=== PATIENT | male | born 1995 | race Caucasian/White ===

== ENCOUNTER 2019-12-17 08:18 | Emergency (ER) | payer OTHER, SELFPAY ==
[2019-12-17 08:21] VITALS: BP 159/96; PULSE 107; RESP 16; TEMP 36.1; O2SAT 99; BMI 31.7
--- NOTE | 2019-12-17 08:36 | ED.DCSUM_ITS ---
- ER Visit Summary Date of Service: 12/17/19 Chief Complaint: Abdominal pain History of Present Illness: The patient is a 24 M who presents with abdominal pain that has been constant for the past 2 weeks. Patient states it is gradually gotten worse. Patient states pain is over the epigastric and upper abdomen. Patient describes it as aching. Patient states he saw his primary care physician for this who prescribed him Pepcid. Patient states this helps for a short time. Patient states his pain is worse with eating and with laying flat. Patient admits to nausea but denies any vomiting. Patient admits to diarrhea but denies any melena or hematochezia. Patient denies any dysuria or hematuria. Physical Examination: Vital signs are stable except for mild tachycardia of 107. Patient is afebrile. Patient is in no acute distress. Oral mucosa is pink and moist. Neck is supple. Trachea is midline. There is no JVD. Heart was regular and slightly tachycardic. Lungs are clear and equal bilaterally. Abdomen is soft. Bowel sounds are normal. There is epigastric and bilateral upper quadrant tenderness, worse on the right. There is no rebound or guarding noted. There is negative Harley sign. Cranial nerves II through XII are intact. There are no focal motor or sensory deficits noted. Test Results: CBC was within normal limits. Comprehensive metabolic profile showed a slightly elevated bilirubin of 2.3. Right upper quadrant ultrasound was obtained. There is fatty infiltration of the liver. There is a 4 mm nonobstructive stone in the right kidney. There is no cholelithiasis or evidence of cholecystitis. These were interpreted by the radiologist and myself. Emergency Department Course and Treatment: Patient was given a GI cocktail here. Patient was feeling somewhat better on reevaluation. Patient was instructed to start taking Prilosec which he has at home. Patient was instructed to follow-up with his primary care physician in 5 to 7 days. Patient was advised he may need to see a escrow agent to have an endoscopy to see if this is possible gastric or duodenal ulcer. Patient understands and is agreeable with the plan. All questions were answered. Disposition: Discharge home Impression: 1. Upper abdominal pain This note was generated with [employer]te[employer] (Emerald [employer])ation software. It may contain incorrect words, spelling, and punctuation that were not noted in review of the chart prior to signing ED Disposition - Plan for ED Patient: Disposition: Home or Assisted Living Diagnosis: Upper abdominal pain of unknown etiology Instructions: ABDOMINAL PAIN, Unkown Cause, (Male) Referrals: Preston Vazquez, [facility] [Primary Care Provider] - 5-7 Days
[2019-12-17] MEDS: Ondansetron 4 MG/2 ML Vial IV (08:55)
[2019-12-17] MEDS: 0.9% Normal Saline 1,000 ML 1000 ML IV (08:55)
[2019-12-17] MEDS: Mag Hydrox/Al Hydrox/Simeth 30 ML UDC PO (08:55)
[2019-12-17 09:00] LABS: Absolute Lymphocyte Count 1.74 X10^3/uL (0.83-4.51); Absolute Neutrophil Count 3.8 X10^3/uL (2.0-7.7); Basophil# 0.05 X10^3/uL; Basophil% 0.8 % (0-1); Eosinophil# 0.06 X10^3/uL; Hematocrit 45.9 % (40-54); Hemoglobin 16.3 g/dL (13.0-16.5); Lymphocyte # 1.74 X10^3/ul (4.0); Lymphocyte % 28.7 % (19-41); Mean Corp Hgb Conc 35.5 g/dL (32-36); Mean Corpuscular Hgb 32.8 pg (27.0-32.0); Mean Corpuscular Volume 92.4 fL (80-94); Mean Platelet Vol. 9.8 fl (6.2-12.0); Monocyte# 0.43 X10^3/uL; Monocyte% 7.1 % (0-10); NRBC Flagged by Analyzer 0 % (0-5); Neutrophil # 3.77 X10^3/uL (2.7-7.7); Neutrophil % 62.2 % (47-70); Platelet Count 299 K/mm3 (150-450); RBC Distribution Width CV 11.3 % (11.6-14.6); RBC Distribution Width SD 38.6 fl (35.1-43.9); Red Blood Count 4.97 M/mm3 (4.6-6.2); White Blood Count 6.1 K/mm3 (4.4-11.0)
[2019-12-17 09:17] LABS: ALB/GLOB Ratio 1.2 RATIO (0.9-2.4); AST(SGOT) 36 U/L (15-37); Alanine Aminotransfer ALT/SGPT 91 U/L (16-61); Albumin, Serum 4.2 g/dL (3.2-5.0); Alkaline Phosphatase 95 U/L (45-117); Anion Gap 5 (5-15); BUN 14 mg/dL (7-18); Calcium,Total 9.8 mg/dL (8.5-10.1); Chloride 105 mmol/L (98-107); Creatinine, Serum 1.27 mg/dL (0.70-1.30); EST Glomerular Filtration Rate 73 mL/min (>60); Est Glom Filt Rate - Afr Amer 88 mL/min (>60); Estimated Creatinine Clearance 88.92 ml/min; Globulin 3.5 g/dL (2.2-4.2); Glucose 96 mg/dL (74-106); Lipase 131 U/L (73-393); Potassium 3.8 mmol/L (3.5-5.1); Protein, Total 7.7 g/dL (6.4-8.2); Sodium Level 140 mmol/L (136-145)
--- NOTE | 2019-12-17 09:43 | US_ITS ---
STUDY: ABDOMINAL ULTRASOUND - RIGHT UPPER QUADRANT REASON FOR VISIT: Male, 24 years old ruq pain x 3 weeks TECHNIQUE: Ultrasound evaluation of the right upper quadrant was performed with real-time and static jenkins-scale imaging. TECHNICAL QUALITY: Adequate. COMPARISON: None. FINDINGS: Liver: The liver measures 14.2 cm. There is increased echogenicity consistent with fatty infiltration. The bile ducts are within normal limits. There is hepatic color flow. The direction of portal flow is hepatopetal. There is no demonstrated mass lesion. Gallbladder: Normal distended gallbladder. The gallbladder wall measures 2.3 mm. There is a negative sonographic Harley''s sign. There is no pericholecystic fluid. There are no gallstones. Common Bile Duct (C.B.D.): The common bile duct measures 2.6 mm. Pancreas: Normal size of the head, body and tail of the pancreas. There is increased echogenicity of the pancreas. There is no demonstrated pancreatic mass or cyst. Right Kidney: Normal size of the right kidney. The right kidney measures 11.5 cm x 5.8 cm x 5.1 cm. Normal renal cortex. The right cortex measures 2.3 cm. There is no demonstrated renal mass or cyst. There is no right hydronephrosis. There is a 4 mm nonobstructive calculus in the right kidney. US/Abdomen Limited IMPRESSION: Fatty infiltration of the liver. 4 mm nonobstructive calculus in the right kidney. Electronically Signed: Donavan Gonsalves, at 10:32 EST , Service support ,
[2019-12-17 11:16] VITALS: BP 134/85; PULSE 74; RESP 16; O2SAT 96
--- NOTE | 2019-12-17 11:17 | ED.RN ---
IV DC'ED, CATHETER INTACT, SMALL GAUZE DRESSING PLACED. DISCHARGE INSTRUCTIONS GIVEN TO AND REVIEWED WITH PATIENT, PATIENT DENIES QUESTIONS OR CONCERNS AND VOICES UNDERSTANDING OF DISCHARGE INSTRUCTIONS. PT AMBULATES OUT OF ROOM WITHOUT DIFFICULTY.
== END 2019-12-17 11:18 | disposition home or self-care (01) ==
PROVIDERS: Emergency Provider Emergency Medicine; PCP Nurse Practitioner Family
DX: R10.11 Right upper quadrant pain (principal); M54.9 Dorsalgia, unspecified; R11.2 Nausea with vomiting, unspecified; N20.0 Calculus of kidney
CPT/HCPCS: 76705; 80053; 83690; 85025; 96361; 96374; 99284; J7030; A4216; J2405

== ENCOUNTER 2025-09-22 18:42 | Emergency (ER) | payer BC, SELFPAY ==
[2025-09-22] VITALS (7 sets, daily range): BP systolic 121–187; BP diastolic 75–102; PULSE 78–117; RESP 16–22; TEMP 36.1–36.8; O2SAT 95–100; BMI 37.9
--- OUTSIDE RECORDS SUMMARY | 2025-09-22 19:16 | XMS RPT_ITS | CCD ---
Author Organization [facility] SERVICE DEPARTMENT MANAGER [facility] Results Test Name Value Interpretation Reference Range Facil ity NM HEPATOBILIARY DUCT SYSTEM IMAGINGon 01-13-2020 NM HEPATOBILIARY DUCT SYSTEM IMAGING ORIGINAL NM HEPATOBILIARY DUCT SYSTEM IMAGING CLINICAL STATEMENT: RUQ pain, cholecystitis suspected. TECHNIQUE: Radiopharmaceutical : Tc-99m CHOLETEC Dose: 6.3 mCi IV Dynamic anterior imaging of the liver Sincalide CCK Dose: 1.9 mcg IV infusion 30 minute additional dynamic study and GBEF calculation COMPARISON: None. FINDINGS: There is prompt normal hepatic uptake. No apparent focal cold defect is seen in the liver. The biliary tree, common bile duct, gallbladder, and small bowel are all visualized within the normal time range. The gallbladder contracts adequately to CCK stimulation. The calculated gallbladder ejection fraction is 59%. (normal = or > than 35%). IMPRESSION: Normal study. The cystic duct is patent, which essentially excludes the diagnosis of acute cholecystitis. There is normal gallbladder contractility. Interpreted By: Renee Oro Preliminary Report By: Renee Oro Electronically Signed By: Renee Oro Dictated Date: 01/13/2020 3:07:32 PM Prelim Date: 01/13/2020 3:07:32 PM Sign Date: 01/13/2020 3:12:38 PM Ordering Provider:Preston Vazquez [facility] ([place]) Summary Purpose Family History No Family History Records Found Advance Directives No Advanced Directives Records Found Additional Source Comments (unrecognized sect ion and content) No Status Records Found INFORMATION SOURCE (unrecogn ized section and content) DATE CREATED AUTHOR 01/13/2020 [facility] ([place]) FOR RECORDS PERTAINING TO PATIENTS WHO ARE OR HAVE BEEN ENROLLED IN A CHEMICAL DEPENDENCY/SUBSTANCEABUSE PROGRAM, SOME INFORMATION MAY BE OMITTED. This clinical summary was aggregated from multiple sources. Caution should be exercised in using it in the provision of clinical care. This summary normalizes information from multiple sources, and as a consequence, information in this document may materially change the coding, format and clinical context of patient data. In addition, data may be omitted in some cases. CLINICAL DECISIONS SHOULD BE BASED ON THE PRIMARY CLINICAL RECORDS. [facility]. provides no warranty or guarantee of the accuracy or completeness of information in this document.
--- NOTE | 2025-09-22 19:20 | EKG12_ITS ---
Test Reason : CP Blood Pressure : */* mmHG Vent. Rate : 103 BPM Atrial Rate : 103 BPM P-R Int : 150 ms QRS Dur : 80 ms QT Int : 334 ms P-R-T Axes : 51 84 35 degrees QTcB Int : 437 ms Sinus tachycardia Otherwise normal ECG Confirmed by TAHIRA ROSS ([id number]), publications editor OSNYA ROBB ([id number]) on 09/26/2025 6:37:44 AM Referred By: Confirmed By: TAHIRA ROSS
--- NOTE | 2025-09-22 19:21 | RAD_ITS ---
PROCEDURE: CHEST PA AND LATERAL 09/22/2025 REASON FOR EXAM: CHEST PAIN TECHNIQUE: Procedure Code: RADCXR Modality: DX Procedure: CHEST PA AND LATERAL COMPARISON: None. FINDINGS: Lungs/Pleura: Clear. Heart/Mediastinum: Within normal limits. Bones/Soft tissues: Unremarkable. RAD/Chest PA and Lateral IMPRESSION: No acute cardiopulmonary disease. Reading Location: [id number]
--- NOTE | 2025-09-22 19:34 | EDS_ITS ---
HPI History of Present Illness Chief Complaint: Chest Pain Narrative Narrative: Chief complaint and HPI: 30-year-old male with no significant past medical history who presents for evaluation of chest pain. Patient states he has a history of chest pain approximately 1 year ago when she was diagnosed with heartburn. States this feels similar. Patient states for the past several days he has been having some midsternal chest/epigastric abdominal pain. Intermittent. Describes it as burning. States that he eats a lot of spicy and fatty foods. States that coffee makes it worse. He endorses chewing tobacco but denies cigarettes. He denies any fever, chills, shortness of breath, n ausea, vomiting. Feels that his anxiety is having a component in his symptoms. Review of systems: See HPI Medications: As listed on the chart Allergies: As listed on the chart PFSH: Per chart Vital signs: As listed on the chart. Reviewed. Physical exam: Gen: A&O x3, NAD but anxious Head: Normocephalic, atraumatic Eyes: No sclera icterus, conjunctiva clear ENT: Moist mucous membranes Neck: Trachea midline CV: RRR, no murmurs Resp: Lungs CTA BL, no w/r/c GI: Abd soft, non-distended, non-tender, no r/r/g Musc: Moves all extremities, no deformity Skin: Warm, dry Psych: Cooperative PFSH PFSH Medical History no medical history Home Medications ?Medication ?Instructions ?Recorded ?Last Taken ?Type omeprazole 40 mg capsule,delayed 40 mg PO QHS 12/17/19 Unknown History release Allergy/AdvReac Type Severity Reaction Status Date / Time No Known Allergies Allergy Verified 09/22/25 18:44 Social History Smoking Status: Never smoker EXAM Physical Exam Const Vital Signs: 09/22/25 18:42 09/22/25 19:16 09/22/25 19:19 Temperature 97 F L Temperature Source Temporal Pulse Rate 117 H 102 H Respiratory Rate 22 H 20 H Respiratory Effort Normal Non-Labored Blood Pressure 187/102 H 121/75 H Blood Pressure Mean 130 90 Pulse Ox 100 95 Oxygen Delivery Method Room Air 09/22/25 19:30 09/22/25 20:15 09/22/25 21:00 Temperature Temperature Source Pulse Rate 106 H 103 H 97 Respiratory Rate 19 H 20 H 19 H Respiratory Effort Blood Pressure 155/75 H 140/81 H Blood Pressure Mean 93 98 Pulse Ox 96 95 96 Oxygen Delivery Method 09/22/25 22:00 Temperature Temperature Source Pulse Rate 89 Respiratory Rate 19 H Respiratory Effort Blood Pressure 139/77 H Blood Pressure Mean 97 Pulse Ox 95 Oxygen Delivery Method MDM MDM MDM Narrative Medical decision making narrative: 30-year-old male with no significant past medical history who presents for evaluation of chest pain. Patient states he has a history of chest pain approximately 1 year ago when she was diagnosed with heartburn. States this feels similar. Patient states for the past several days he has been having some midsternal chest/epigastric abdominal pain. Intermittent. Describes it as burning. States that he eats a lot of spicy and fatty foods. States that coffee makes it worse. Differential diagnosis includes but is not limited to GERD, gastritis, arrhythmia, ACS, PE. Pepcid and GI cocktail ordered. Laboratory workup ordered. CBC without leukocytosis or anemia. Platelets unremarkable. D-dimer unremarkable. BMP unremarkable. Patient has mild transaminitis with an AST of 96 and ALT of 150. No hyperbilirubinemia. No elevated alkaline phosphatase. Patient's abdomen is benign. No clear etiology for his transaminitis. Troponin unremarkable x 2. Lipase unremarkable. On reevaluation, patient states that the Pepcid and GI cocktail helped his symptoms. I suspect his symptoms are secondary to GERD/acid reflux. Will place on Protonix and have him follow-up outpatient with primary care physician and GI. Patient was updated on his transaminitis. States he has a history of this in the past in which his doctor watches due to fatty liver. Patient stable to discharge home. EKG: Interpreted by me/EM physician: EKG shows sinus tachycardia with a heart rate of 103. No acute ischemic changes. No QTc prolongation. Diagnostic: Interpreted by me/EM physician: Chest x-ray not pneumonia, effusion, cardiomegaly, pneumothorax Impression: 1. GERD 2. Transaminitis Lab Data Labs: Laboratory Results - last 24 hr 09/22/25 09/22/25 19:30 21:40 WBC 11.0 RBC 4.72 Hgb 16.0 Hct 44.6 MCV 94.5 H MCH 33.9 H MCHC 35.9 RDW Std Deviation 39.4 RDW Coeff of Constance 11.4 L Plt Count 321 MPV 9.9 Immature Gran % (Auto) 0.300 Neut % (Auto) 76.3 H Lymph % (Auto) 15.6 L Heard % (Auto) 6.6 Eos % (Auto) 0.4 Baso % (Auto) 0.8 Absolute Neuts (auto) 8.4 H Absolute Lymphs (auto) 1.71 Nucleated RBC % 0 D-Dimer Quant (PE/DVT) 0.27 Sodium 139 Potassium 3.9 Chloride 98 Carbon Dioxide 28.7 Anion Gap 12 BUN 16 Creatinine 1.07 Estim Creat Clear Calc 122.13 Est GFR (MDRD) Non-Af 95 BUN/Creatinine Ratio 15.0 Glucose 97 Calcium 9.6 Total Bilirubin 1.03 AST 96 H ALT 150 H Alkaline Phosphatase 68 Troponin T High Sens < 6 Troponin T Hi Sens 2 Hr < 6 Total Protein 7.8 Albumin 4.4 Globulin 3.4 Albumin/Globulin Ratio 1.3 Lipase 46 Radiography Diagnostic Testing: Clinical Impression(s) from Imaging Studies Chest X-Ray 09/22/25 19:21 IMPRESSION: No acute cardiopulmonary disease. Reading Location: [id number] Discharge Plan Triage Chief Complaint: Chest Pain ED Provider: Redd Garcia Dx/Rx/DC Orders Prescriptions: No Action omeprazole 40 MG capsule,delayed release(DR/EC) 40 mg PO QHS Primary Care Provider: Preston Vazquez NP Referrals: Preston Vazquez [employer], [employer] [Primary Care Provider, Family Practice] Print Language: Citizen [place]
[2025-09-22] MEDS: Lidocaine 2% Viscous15 ML UDC 15 ML PO (19:38)
[2025-09-22] MEDS: Famotidine 200 MG/20 ML MDV 20 MG in 0.9% Normal Saline (Pres. free 8 ML 300 MG IV (19:38)
[2025-09-22 19:54] LABS: Hematocrit 44.6 % (40-54); Hemoglobin 16.0 g/dL (13.0-16.5); Immature Granulocytes Count 0.030 X10^3/uL (0.0-0.0); Mean Corp Hgb Conc 35.9 g/dL (32-36); Mean Corpuscular Volume 94.5 fL (80-94); Mean Platelet Vol. 9.9 fl (6.2-12.0); NRBC Flagged by Analyzer 0 % (0-5); Platelet Count 321 K/mm3 (150-450); RBC Distribution Width CV 11.4 % (11.6-14.6); RBC Distribution Width SD 39.4 fl (35.1-43.9); Red Blood Count 4.72 M/mm3 (4.6-6.2); White Blood Count 11.0 K/mm3 (4.4-11.0)
[2025-09-22 20:16] LABS: D-Dimer Quantitative (DVT/PE) 0.27 FEU/ug/m (0.27-0.49)
[2025-09-22 20:19] LABS: AST(SGOT) 96 U/L (<=37); Alanine Aminotransfer ALT/SGPT 150 U/L (<=46); Albumin, Serum 4.4 g/dL (3.5-5.0); Alkaline Phosphatase 68 U/L (40-129); Anion Gap 12 (5-15); BUN 16 mg/dL (4-19); BUN/Creat Ratio 15.0 RATIO (10-20); Calcium,Total 9.6 mg/dL (7.6-11.0); Carbon Dioxide 28.7 mmol/L (21.0-32.0); Chloride 98 mmol/L (98-108); Estimated Creatinine Clearance 122.13 ml/min (50-250); Globulin 3.4 g/dL (2.2-4.2); Glucose 97 mg/dL (70-99); Lipase 46 U/L (13-75); Potassium 3.9 mmol/L (3.3-5.1); Troponin T High Sensitivity < 6 ng/L (<=22)
[2025-09-22 22:01] LABS: Troponin T High Sens 2 HR < 6 ng/L (<=22)
== END 2025-09-22 23:13 | disposition home or self-care (01) ==
PROVIDERS: Emergency Provider Surgery; PCP Nurse Practitioner Family; Visit Provider Surgery
DX: K21.9 Gastro-esophageal reflux disease without esophagitis (principal); F41.9 Anxiety disorder, unspecified; F17.220 Nicotine dependence, chewing tobacco, uncomplicated; R74.01 Elevation of levels of liver transaminase levels
CPT/HCPCS: 71046; 80053; 83690; 84484; 85025; 85379; 93005; 96374; 99284; A4216